=== PATIENT | female | born 2000 | race Caucasian/White ===

== ENCOUNTER 2018-12-25 11:53 | Emergency (ER) | payer BC ==
[2018-12-25] MEDS ORDERED: NS 1,000 ML IV ONE (12:25)
--- NOTE | 2018-12-25 12:25 | EDPHY ---
General Time Seen by Provider: 12/25/18 12:24 Narrative: CLINICAL IMPRESSION: Medication overdose, depression ASSESSMENT/PLAN: Patient is a 18-year-old female with a significant history of anxiety, depression, attention deficit hyperactivity disorder and bipolar disorder who presents after taking 7 pills of her 1 mg Klonopin medication. Patient is afebrile and nontoxic-appearing, she is in no acute distress. Physical examination reveals an alert and oriented well-appearing female, mild slurred speech, Neurological exam grossly normal with no focal deficit. CBC revealed no evidence of leukocytosis or anemia. Her vital signs were reviewed and no findings to suggest bacterial illness. Metabolic panel was hemolyzed, revealed a mildly elevated potassium which I believe is secondary to hemolysis, no evidence of acute kidney injury. Tylenol, salicylate and alcohol negative. Drug screen positive for cannabinoid consistent with her history. negative. Poison Control was notified, recommended supportive care and observation for at least 4 hr. The patient was given IV fluids and observed for 5 hr, a formal behavioral health evaluation was performed. After formal evaluation, the patient was able to contract for safety with a plan for follow-up in 2 days with her local psychologist Kaitlynn Elizabeth. On re-examination and prior to discharge the patient is well-appearing, she denies any physical complaints. Her neurological exam is grossly normal with no focal deficit. There were no clinical findings to suggest persistent intoxication, organic etiology, significant metabolic abnormality or other toxidrome. She does not feel in imminent danger to self or others, her mother is arriving in [place] this evening at 7:00 p.m. And will be caring for her until follow-up. Return precautions discussed- she will return for worsening depression, SI, HI, increased or uncontrolled behaviors, altered mentation, fever or for any other concerning symptom. Patient verbalizes understanding and is in agreement with plan. DIFFERENTIAL DX: Differential diagnosis including but not limited to chronic psychosis, medication noncompliance, medication side effect, depression and illicit drug use. ED COURSE: 1232: #[id number] discussed case with poison control, supportive care at this time. Observation 4 hours. 1235: Case discussed with Dr. Luz. 1418: On repeat examination the patient is well-appearing. She is no longer lethargic, she is alert and oriented x4. She denies any physical complaints. Medically clear for behavior health evaluation. 1630: Discussed case with mental health, they formally evaluated the patient and the patient was able to contract for safety. Patient is present with a very reliable friend who will be present in taking care of her. Her mother is arriving in [place] at 7:00 p.m. This evening. They have already scheduled follow-up for psychological counseling on Saturday morning. 1643: On reexamination prior to discharge the patient is well-appearing, she denies any physical complaints. She was able to contract for safety with myself. Her friend is present and feels comfortable taking the patient home. CHIEF COMPLAINT: Overdose, intentional self-harm HPI: Patient is a 18-year-old female with a significant medical history of anxiety, depression, attention deficit hyperactivity disorder and bipolar disorder who presents to the emergency department after feeling overwhelmed and subsequently taking 7 of her Klonopin pills (1 mg dose tablets). Her room a came into the room after she did this, the patient appeared as if she was going to take more pills however the roommate intervened at that time. Patient was seen and evaluated up at the [facility], subsequently placed on an M1 hold secondary to potential of self-harm and sent here for further evaluation. Patient does have a psychiatric history with previous suicide attempt by overdosing on Benadryl 4 years prior. Her psychiatric care is in [place], she does not have a local referral. Patient endorses that she is under a significant amount of stress, she was feeling overwhelmed at which point she took multiple Klonopin at 1 time. She was just hoping to "detach herself" from her situation. She denies any intention of suicidal ideation, has had no homicidal ideation. PMH: Anxiety, depression, attention deficit hyperactivity disorder, bipolar disorder Pertinent Past Surgical History: Denies Family History: Not contributory Social History: Occasional alcohol, occasional marijuana, denies any cigarette smoking. REVIEW OF SYSTEMS: All other systems negative Constitutional: No fever, no chills, appetite change. Eyes: No discharge, vision change ENT: No sore throat, congestion, ear pain. Cardiovascular: No chest pain, no palpitations. Respiratory: No cough, no shortness of breath. Gastrointestinal: No abdominal pain, no vomiting, diarrhea. Genitourinary: No hematuria, dysuria, flank pain, pelvic pain Musculoskeletal: No back pain, joint swelling, joint pain, myalgias. Skin: No rashes, color change. Neurological: No headache, dizziness, weakness. PHYSICAL EXAM: General Appearance: Alert, well-developed, she appears intoxicated however in no acute distress. HENT: Normocephalic, atraumatic. Bilateral external ears are normal. Bilateral tympanic membranes are normal with pearly sierra reflex. Nares are clear, mucosa is pink. Oropharynx is clear, mucosa is mildly dry, uvula is midline. There is no tonsillar enlargement or exudate. The dentition is normal. Eyes: PERRLA, EOMI intact. Conjunctiva pink, no pallor or injection. Neck: Supple, nontender, no lymphadenopathy, no midline pain, FROM, no meningismus. Respiratory: There are no retractions, lungs are clear to auscultation. Cardiac: Regular rate and rhythm, no murmurs or gallops. Gastrointestinal: Abdomen is soft, nontender, bowel sounds normal, no masses/ hernia, no rigidity, guarding or focal peritoneal findings. Neurological: Alert and oriented x 3, CN 2-12 grossly intact, normal gait no ataxia, DTR's intact, normal sensation and strength Skin: Warm, dry, no rashes, no nodules on palpation. Musculoskeletal: Extremities are symmetrical, full range of motion, no tenderness, deformity, swelling, or erythema. Psychiatric: Patient is oriented X 3, there is no agitation, she is slow to answer questions and labile. MEDICAL DECISION MAKING: Patient was seen independently. Secondary supervising physician at time of evaluation was Dr. Luz, he did not evaluate this patient. Diagnosis: Medication abuse, intentional harm. New, requires workup Summary: See Assessment and Plan for summary of ED visit Clinical lab tests: ordered / reviewed. Independent visualization of images, tracing, or specimens: Yes. Decision to obtain medical records or history from someone other than the patient: No Review / Summarize previous medical records: Yes Discussed patient with another provider: Yes, Dr. Luz and Dr. Glynn Patient Progress: Stable, discharge. - Objective Vital Signs: Initial Vital Signs Temperature (C) 37.0 C 12/25/18 12:29 Heart Rate 97 12/25/18 12:29 Respiratory Rate 16 12/25/18 12:29 Blood Pressure 130/86 H 12/25/18 12:29 O2 Sat (%) 98 12/25/18 12:29 O2 Delivery Mode Room Air Allergies/Adverse Reactions: No Known Allergies Allergy (Unverified 12/25/18 12:12) Home Medications: Medication Instructions Recorded Clonazepam 12/25/18 LaMICtal 12/25/18 Ritalin 10mg (*) 12/25/18 Laboratory Results: Laboratory Results 12/25/18 12:25 12/25/18 12:25 12/25/18 12/25/18 12/25/18 12:25 12:25 12:25 WBC 8.01 10^3/uL 10^3/uL (3.80-9.50) RBC 4.84 10^6/uL 10^6/uL (4.18-5.33) Hgb 14.2 g/dL g/dL (12.6-16.3) Hct 42.4 % % (38.0-47.0) MCV 87.6 fL fL (81.5-99.8) MCH 29.3 pg pg (27.9-34.1) MCHC 33.5 g/dL g/dL (32.4-36.7) RDW 11.8 % % (11.5-15.2) Plt Count 342 10^3/uL 10^3/uL (150-400) MPV 9.0 fL fL (8.7-11.7) Neut % (Auto) 64.8 % % (39.3-74.2) Lymph % (Auto) 27.3 % % (15.0-45.0) Mineral % (Auto) 7.1 % % (4.5-13.0) Eos % (Auto) 0.4 % L % (0.6-7.6) Baso % (Auto) 0.2 % L % (0.3-1.7) Nucleat RBC Rel Count 0.0 % % (0.0-0.2) Absolute Neuts (auto) 5.18 10^3/uL 10^3/uL (1.70-6.50) Absolute Lymphs (auto) 2.19 10^3/uL 10^3/uL (1.00-3.00) Absolute Monos (auto) 0.57 10^3/uL 10^3/uL (0.30-0.80) Absolute Eos (auto) 0.03 10^3/uL 10^3/uL (0.03-0.40) Absolute Basos (auto) 0.02 10^3/uL 10^3/uL (0.02-0.10) Absolute Nucleated RBC 0.00 10^3/uL 10^3/uL (0-0.01) Immature Gran % 0.2 % % (0.0-1.1) Immature Gran # 0.02 10^3/uL 10^3/uL (0.00-0.10) Sodium 139 mEq/L mEq/L (135-145) Potassium 5.6 mEq/L H mEq/L (3.5-5.2) Chloride 104 mEq/L mEq/L (97-110) Carbon Dioxide 21 mEq/l L mEq/l (22-31) Anion Gap 14 mEq/L mEq/L (6-14) BUN 7 mg/dL mg/dL (7-23) Creatinine 0.6 mg/dL mg/dL (0.6-1.0) Estimated GFR > 60 Glucose 91 mg/dL mg/dL (70-100) Calcium 9.9 mg/dL mg/dL (8.5-10.4) Beta HCG, Qual NEGATIVE Specimen Hemolysis 195 Salicylates < 1.0 mg/dL L mg/dL (2.0-20.0) Urine Opiates Screen Acetaminophen < 10 mcg/mL L mcg/mL (10-30) Urine Barbiturates Ur Phencyclidine Scrn Ur Amphetamine Screen U Benzodiazepines Scrn Urine Cocaine Screen U Marijuana (THC) Screen Ethyl Alcohol < 10 mg/dL mg/dL (0-10) 12/25/18 12:10 WBC RBC Hgb Hct MCV MCH MCHC RDW Plt Count MPV Neut % (Auto) Lymph % (Auto) Mineral % (Auto) Eos % (Auto) Baso % (Auto) Nucleat RBC Rel Count Absolute Neuts (auto) Absolute Lymphs (auto) Absolute Monos (auto) Absolute Eos (auto) Absolute Basos (auto) Absolute Nucleated RBC Immature Gran % Immature Gran # Sodium Potassium Chloride Carbon Dioxide Anion Gap BUN Creatinine Estimated GFR Glucose Calcium Beta HCG, Qual Specimen Hemolysis Salicylates Urine Opiates Screen NEGATIVE (NEGATIVE) Acetaminophen Urine Barbiturates NEGATIVE (NEGATIVE) Ur Phencyclidine Scrn NEGATIVE (NEGATIVE) Ur Amphetamine Screen NEGATIVE (NEGATIVE) U Benzodiazepines Scrn NEGATIVE (NEGATIVE) Urine Cocaine Screen NEGATIVE (NEGATIVE) U Marijuana (THC) Screen NON-NEGATIVE H (NEGATIVE) Ethyl Alcohol Medications Given: Discontinued Medications Sodium Chloride (Ns) 1,000 mls @ 0 mls/hr IV ONCE ONE PRN Reason: Wide Open Stop: 12/25/18 12:26 Last Admin: 12/25/18 12:39 Dose: 1,000 mls Departure - Departure Disposition: Home, Routine, Self-Care Clinical Impression: Depression Qualifiers: Depression Type: unspecified Qualified Code(s): F32.9 - Major depressive disorder, single episode, unspecified Deliberate medication overdose Qualifiers: Encounter type: initial encounter Qualified Code(s): T50.902A - Poisoning by unspecified drugs, medicaments and biological substances, intentional self-harm , initial encounter Condition: Good Instructions: Suicide Prevention (ED), Depression (ED) Additional Instructions: DISCHARGE INSTRUCTIONS FROM YOUR DOCTOR Thank you for visiting our emergency department today. Please keep in mind that discharge from the emergency department does not mean that there is nothing wrong - it simply means that we have not identified an emergency condition that requires further evaluation or treatment in the hospital. You should always plan to follow up with primary care for re-evaluation of your condition in the next 2-3 days. Please follow-up with your psychologist as scheduled and as discussed. Rest, healthy/regular sleep schedule, push fluids, healthy diet, regular exercise. Attempt to reduce stress. Pursue pleasurable, healthy activities. Surround yourself with loving, supportive, healthy friends and family. Stop smoking as soon as possible. Avoid drugs and alcohol. Counseling to help work through issues and develop good coping and behavioral strategies for stress reduction and symptom control. Establish care with a primary care physician. See our list of resources. Return for increased or unmanageable anxiety, severe depression, thoughts or plans to hurt yourself or someone else, for chest pain, shortness of breath, dizziness, fainting, rapid or irregular heart beat, sweating, vomiting, abdominal pain, back pain, tremor, seizure, mental status changes, or for any other new, worsening or worrisome symptoms. People present with illnesses and injuries in different ways, and it is always possible that we have missed something. You may always return for re-evaluation if symptoms worsen or if they are not improving or if you develop new/different symptoms. Again, thank you for choosing our emergency department. We hope that you feel better. Referrals: Rimma Orellana MD [Medical Doctor] - As per Instructions (Please establish care with a primary care provider if you do not already have 1. You may otherwise follow-up at [facility]. )
[2018-12-25 13:09] LABS: PLATELET COUNT 342 10^3/uL (150-400)
[2018-12-25 16:11] VITALS: BP 127/85
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
--- NOTE | 2018-12-25 17:01 | ASMTTCLDSP ---
TLC Discharge Disposition Disposition: Answers: Discharge If Answers: Yes DISCHARGED: Patient/family given suicide hotline info & SAMHSA brochure? Disposition Notes: Notes: Pt's discharged to care of friend Song who will be staying with pt for the night. Pt's mother Yesika is flying to [place] and will be here at 1930. Pt made an appointment with her therapist tomorrow at 2:15pm. Discharge Concerns/Recommendations: Notes: In consultation with [facility] ED physician, Ping Bello MD, and on-call psychiatrist, Deangelo Keene MD, both concurred that pt does not appear to meet 27-65 criteria requiring psychiatric hospitalization as pt does not appear to be an imminent risk of harm to self/others/gravely disabled due to a mental illness condition. Psychiatrist vacating M1 Deangelo Keene MD Hold: Date and time M1 hold 12/25/2018 04:20 PM vacated (time format is hh:mm): Date Signed: 12/25/2018 05:00 PM Electronically Signed By:Darleen Hirsch
== END 2018-12-25 17:06 | disposition home or self-care (01) ==
LOC: EDUNIT#
DX: F32.9 Major depressive disorder, single episode, unspecified (principal); T42.4X2A Poisoning by benzodiazepines, intentional self-harm, initial encounter
CPT/HCPCS: 80305; G0480